=== PATIENT | male | born 1955 | race Two or more races ===

== ENCOUNTER 2021-01-08 13:09 | Emergency (ER) | payer OTHER ==
[~2021-01-08] VITALS: Ht 167.6 cm; Wt 74.8 kg
[2021-01-08] MEDS ORDERED: BISO5TAB44 PO (13:56)
[2021-01-08] MEDS ORDERED: TORS20TA19 PO (13:56)
[2021-01-08] MEDS ORDERED: LEVE500T3 PO (13:56)
[2021-01-08] MEDS ORDERED: LEVO50TA7 PO (13:56)
[2021-01-08] MEDS ORDERED: POTA-264 PO (13:56)
[2021-01-08] MEDS ORDERED: SPIR25TA8 PO (13:56)
[2021-01-08] MEDS ORDERED: ATOR40TA52 PO (13:56)
[2021-01-08] MEDS ORDERED: LACT10SO3 PO (13:56)
[2021-01-08] MEDS ORDERED: PANT40T PO (13:56)
[2021-01-08] MEDS ORDERED: CEPH500C PO (13:56)
[2021-01-08] MEDS ORDERED: SUCR1TAB PO (13:56)
[2021-01-08] MEDS ORDERED: CLIN300C8 PO (13:56)
[2021-01-08 14:26] LABS: Basophils # (auto) 0.1 10 ^3/uL (0-0.2); Eosinophils # (auto) 0.1 10 ^3/uL (0-0.8); Hematocrit 18.3 % (41.0-53.0); Lymphocytes # (auto) 0.3 10 ^3/uL (0.4-5.4); Neutrophils # (auto) 7.2 10 ^3/uL (1.6-8.6); Nucleated Red Blood Cells % 0.1 %; Red Blood Cells 1.93 10^6/uL (4.5-5.90); Red Cell Distribution Width 21.4 % (11.8-14.3)
[2021-01-08 14:28] LABS: Basophils % (auto) 1.1 % (0.0-2.0); Eosinophils % (auto) 1.1 % (0.0-7.0); Lymphocytes % (auto) 3.5 % (10.0-50.0); Mean Corpuscular Hemoglobin 31.1 pg (28.0-32.0); Mean Corpuscular Hgb Conc. 32.7 g/dL (32.0-36.0); Mean Corpuscular Volume 95.1 fL (80.0-100.0); Monocytes % (auto) 11.4 % (0.0-12.0); Neutrophils % (auto) 82.9 % (37.0-80.0); Platelet Count (auto) 264 10^3/uL (140-450); White Blood Cell 8.6 10^3/uL (4.4-10.8)
[2021-01-08 14:48] LABS: Anion Gap 8 (5-15); Blood Urea Nitrogen 74 mg/dL (7-18); Carbon Dioxide 22 mmol/L (21-32); Chloride 105 mmol/L (98-107); Glucose 89 mg/dL (74-106); Potassium 4.4 mmol/L (3.5-5.1); Sodium 135 mmol/L (136-145)
[2021-01-08 14:52] LABS: Alanine Aminotransferase 26 U/L (16-61); Alkaline Phosphatase 143 U/L (45-117); Aspartate Aminotransferase 21 U/L (15-37); BUN/Creatinine Ratio 32.3; Bilirubin, Total 0.5 mg/dL (0.2-1.0); GFR African American 37 mL/min; GFR Non-African American 31 mL/min; Total Protein 7.6 g/dL (6.4-8.2)
[2021-01-08 15:09] LABS: INR 1.27 (0.9-1.15); Partial Thromboplastin Time 34.5 sec (23.0-31.2)
[2021-01-08] MEDS ORDERED: DexAMETHasone SOD PHOS 10MG/1ML VIAL INJ IV ONE (18:00)
[2021-01-08] MEDS ORDERED: DOXYCYCLINE 100MG/250ML 250 ML IV ONE (18:00)
[2021-01-08] MEDS ORDERED: SODIUM CHLORIDE 0.9% 500 ML IV ONE (18:00)
[2021-01-08 20:54] VITALS: BP 94/58
[2021-01-08 21:10] VITALS: BP 90/56
[2021-01-08 21:15] VITALS: BP 90/56
[2021-01-08] MEDS ORDERED: ACETAMINOPHEN 325 MG TAB PO ONE ×2 (21:15→21:30)
[2021-01-08 22:06] LABS: Urine Bacteria FEW /hpf (None Seen); Urine Blood Negative /uL (Negative); Urine Hyaline Cast FEW /lpf (0 - 2); Urine WBC 2 /hpf (0 - 3)
== END 2021-01-08 21:29 | disposition short-term general hospital (02) ==
LOC: EDBD 13:09 → ER 13:09
DX: U07.1 COVID-19 (principal); A41.89 Other specified sepsis; J18.9 Pneumonia, unspecified organism; J11.00 Influenza due to unidentified influenza virus with unspecified type of pneumonia; N18.9 Chronic kidney disease, unspecified; D63.1 Anemia in chronic kidney disease; I50.33 Acute on chronic diastolic (congestive) heart failure; E11.22 Type 2 diabetes mellitus with diabetic chronic kidney disease; Z79.899 Other long term (current) drug therapy
CPT/HCPCS: 36415; 36430; 71045; 80053; 81001; 82270; 83605; 83735; 83880; 84443; 84484; 85025; 85379; 85610; 85730; 86850; 86900; 86901; 86920; 87040; 87077; 87186; 87205; 87426; 93005; 96365; 96375; 99285; J1100; J3490; P9016